=== PATIENT | female | born 2000 | race Caucasian/White ===

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

== ENCOUNTER 2022-08-25 10:11 | Emergency (ER) | payer SELFPAY ==
[2022-08-25] MEDS ORDERED: Ketorolac Tromethamine 30 MG/ML VIAL ONE (10:37)
== END 2022-08-25 10:56 | disposition home or self-care (01) ==
LOC: ERS 10:11
DX: H66.91 Otitis media, unspecified, right ear (principal); H60.91 Unspecified otitis externa, right ear
CPT/HCPCS: 96372; 99282; J1885

== ENCOUNTER 2022-10-01 11:06 | Emergency (ER) | payer SELFPAY | END 2022-10-01 12:25 | disposition home or self-care (01) | LOC: ERS 11:06 | DX: J06.9 Acute upper respiratory infection, unspecified (principal) | CPT/HCPCS: 99283 ==